=== PATIENT | male | born 1940 | race Caucasian/White ===

== ENCOUNTER → 2016-04-06 | Outpatient (CLI) | payer OTHER ==
--- NOTE | 2016-04-06 16:23 | MR ---
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 Comparison: MRI brain March 2016. Technique: A [id number] gradient echo technique was used for thin axial images at the skull base for evaluation of major vessels of the [place]. Three-dimensional technique was used with a 30-degree gradient echo flip angle and a traveling saturation band. Images were manipulated by the radiologist at the computer workstation. Findings: Major vessels of the [place] are adequately displayed, demonstrating no evidence of aneurysm, vascular malformation, flow-limiting stenosis, or occlusion. No evidence of vascular lo ops involving the internal auditory canals. Vertebrobasilar systems patent. No basilar tip aneurysm. Impression: Negative MRA of the [place].
== END ==
LOC: FIMAGING 14:32
PROVIDERS: ATTEND Otolaryngology
DX: H93.12 Tinnitus, left ear (principal); R29.818 Other symptoms and signs involving the nervous system